=== PATIENT | male | born 1975 | race Caucasian/White ===

== ENCOUNTER 2017-05-30 09:39 | Emergency (ER) | payer MEDICARE, MEDICAID ==
[2017-05-30 09:56] VITALS: BP 124/79
--- NOTE | 2017-05-30 10:20 | UC ---
Hand/Wrist HPI - HPI Summary HPI Summary: 41 yo male injured his right forearm when a lawn tractor transmission fell of a meghana occurred 3 days ago he is right handed taking advil - History Of Current Complaint Chief Complaint: UCUpperExtremity Stated Complaint: RIGHT ARM INJURY Time Seen by Provider: 05/30/17 10:16 Hx Obtained From: Patient Onset/Duration: Sudden Onset, Lasting Days Severity Initially: Moderate Severity Currently: Mild Pain Intensity: 4 Pain Scale Used: 0-10 Numeric Character Of Pain: Dull, Aching Aggravating Factor(s): Movement, Lifting, Flexion Alleviating: Rest, OTC Meds Associated Signs And Symptoms: Positive: Negative Related History: Dominant Hand Right - Allergies/Home Medications Allergies/Adverse Reactions: Allergies Allergy/AdvReac Type Severity Reaction Status Date / Time Penicillins Allergy Severe facial Verified 05/30/17 09:48 swelling, rash Sulfa Drugs Allergy Intermediate Swelling Verified 05/30/17 09:48 Home Medications: Home Medications Loratadine [Claritin 10 MG CAP] 10 mg PO DAILY 05/30/17 [History Confirmed 05/30] PMH/Surg Hx/FS Hx/Imm Hx Previously Healthy: Yes - Surgical History Surgical History: Yes Surgery Procedure, Year, and Place: APPY, TONSILS, RT KNEE arthroscopy for damaged cartilage (Dr. Grande 2006)ALSO 2009 - Family History Known Family History: Positive: Hypertension Negative: Cardiac Disease - Social History Alcohol Use: None Substance Use Type: None Smoking Status (MU): Never Smoked Tobacco Review of Systems Constitutional: Negative Skin: Negative Eyes: Negative ENT: Negative Respiratory: Negative Cardiovascular: Negative Gastrointestinal: Negative Genitourinary: Negative Motor: Negative Neurovascular: Negative Musculoskeletal: Myalgia Neurological: Negative Psychological: Negative Is Patient Immunocompromised?: No All Other Systems Reviewed And Are Negative: Yes Physical Exam Triage Information Reviewed: Yes Appearance: Well-Appearing, No Pain Distress, Well-Nourished Vital Signs: Initial Vital Signs Temp 97.8 F 05/30/17 09:49 Pulse 80 05/30/17 09:49 Resp 18 05/30/17 09:49 BP 124/79 05/30/17 09:49 Pulse Ox 99 05/30/17 09:49 Vital Signs Reviewed: Yes Eyes: Positive: Conjunctiva Clear ENT: Positive: Hearing grossly normal. Negative: Nasal congestion, Nasal drainage, Trismus, Muffled/hoarse voice Neck: Positive: Supple, Nontender, No Lymphadenopathy Respiratory: Positive: Lungs clear, Normal breath sounds, No respiratory distress Cardiovascular: Positive: RRR, No Murmur Abdominal Exam: Normal Musculoskeletal: Positive: ROM Intact, No Edema, Other: - tender ulnar aspect of right forearm....wrist full ROM Neurological: Positive: Alert Psychological Exam: Normal Skin Exam: Normal Diagnostics - Radiology No standard instances Xray Interpretation: No Acute Changes Radiology Interpretation Completed By: Radiologist - IMPRESSION: No fracture of the right forearm is noted Hand/Wrist Course/Dx - Differential Dx/Diagnosis Provider Diagnoses: right forearm contusion Discharge - Discharge Plan Condition: Stable Disposition: HOME Patient Education Materials: Contusion in Adults (ED) Referrals: JOE Hartley [Primary Care Provider] - 1 Week (if not better) Additional Instructions: continue advil ice twice daily recheck in one week if not better recheck sooner if symptoms worsen
--- NOTE | 2017-05-30 10:45 | RAD ---
Indication: Right Ulnar side forearm pain and injury. 2 views of the right forearm demonstrates no fracture. No other bone or joint abnormality is noted. IMPRESSION: No fracture of the right forearm is noted.
== END 2017-05-30 11:04 | disposition home or self-care (01) ==
LOC: UCCORT 09:39
DX: S50.11XA Contusion of right forearm, initial encounter (principal); W24.1XXA Contact with transmission devices, not elsewhere classified, initial encounter; Y93.89 Activity, other specified; Y92.9 Unspecified place or not applicable; Y99.9 Unspecified external cause status
CPT/HCPCS: 99211; G0463